=== PATIENT | male | born 1980 | race Caucasian/White ===

== ENCOUNTER 2017-06-29 16:33 | Emergency (ER) | payer SELFPAY ==
[~2017-06-29] VITALS: Ht 175.3 cm; Wt 77.1 kg
[2017-06-29 16:40] VITALS: BP 155/83
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
--- NOTE | 2017-06-29 17:25 | RAD ---
Exam: Right foot radiograph 06/29/2017 Indication: Trauma Comparison: Right foot radiograph 07/13/2015 Technique: 3 views of the right foot are provided. Findings: Dorsal plate and screw fixation of the first and second tarsometatarsal joints with a cannulated screw traversing the Lisfranc joint. No lucency is identified surrounding the hardware. There is no acute fracture or dislocation. Mild joint space narrowing at the talonavicular articulation. No soft tissue swelling. No osseous erosion or soft tissue gas. Bone mineralization is within normal limits. Impression: No acute fracture or dislocation.
[2017-06-29] MEDS ORDERED: IBUP-1060 PO (17:34)
[2017-06-29] MEDS ORDERED: predniSONE 20 MG TABLET PO ONE (17:45)
== END 2017-06-29 17:35 | disposition home or self-care (01) ==
LOC: ER 16:33
DX: S93.601A Unspecified sprain of right foot, initial encounter (principal); X58.XXXA Exposure to other specified factors, initial encounter; Y93.01 Activity, walking, marching and hiking; Y92.481 Parking lot as the place of occurrence of the external cause; Y99.8 Other external cause status
CPT/HCPCS: 73630; 99284

== ENCOUNTER 2020-11-06 14:12 | Emergency (ER) | payer OTHER ==
[~2020-11-06] VITALS: Ht 172.7 cm; Wt 77.0 kg
[2020-11-06 14:12] VITALS: BP 151/93
[~2020-11-06 14:12] MED LIST: IBUP-1060 PO
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
== END 2020-11-06 14:32 | disposition home or self-care (01) ==
LOC: ER 14:12
DX: F41.8 Other specified anxiety disorders (principal); F12.90 Cannabis use, unspecified, uncomplicated; Z98.890 Other specified postprocedural states
CPT/HCPCS: 99283

== ENCOUNTER 2021-06-16 03:41 | Emergency (ER) | payer OTHER ==
[~2021-06-16] VITALS: Ht 172.7 cm; Wt 77.3 kg
[2021-06-16 03:46] VITALS: BP 167/106
[2021-06-16] MEDS ORDERED: HYDR-2761 PO ×2 (04:56→05:25)
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
[2021-06-16] MEDS: KETOROLAC 30 MG/ML VIAL. IM ONE (05:10)
[2021-06-16] MEDS: LIDOCAINE (700MG/PATCH) PATCH. TD ONE (05:11)
[2021-06-16] MEDS ORDERED: IBUP-1060 PO (05:27)
[2021-06-16] MEDS ORDERED: CYCL10TA2 PO (05:27)
[2021-06-16] MEDS ORDERED: KETOROLAC 60 MG/2 ML VIAL. IM ONE (05:30)
--- NOTE | 2021-06-16 05:30 | RAD ---
XR LUMBAR SPINE 2-3V History: Reason: low back pain, SAID LITTLE TO LEFT WORSE, EXTREMELY PAINFUL TO BEND / Spl. Instructi ons: / History: Technique: 3 views lumbar spine. Comparison: None. Findings: Normal vertebral body height and alignment. No acute fracture. Degenerative disc changes most promine nt L5-S1 moderate. Impression: 1. No acute osseous abnormality. 2. Multilevel lumbar spondylosis most prominent L5-S1. Electronically signed by: Anuj Brito DO (06/16/2021 5:27 AM) CRISTIAN
== END 2021-06-16 05:40 | disposition home or self-care (01) ==
LOC: ER 03:41
DX: M54.59 Other low back pain (principal); M62.830 Muscle spasm of back
CPT/HCPCS: 72100; 96372; 99283; J1885

== ENCOUNTER 2022-01-25 18:37 | Emergency (ER) | payer OTHER ==
[~2022-01-25] VITALS: Ht 172.7 cm; Wt 75.0 kg
[~2022-01-25 18:37] MED LIST changes: +CYCL10TA19 PO; +HYDR-2761 PO
[2022-01-25] MEDS ORDERED: ONDANSETRON PF 4 MG/2 ML VIAL. IVP ONE (19:00)
[2022-01-25] MEDS ORDERED: MORPHINE SULFATE 4 MG/ML INJ. IVP ONE (19:00)
[2022-01-25] MEDS ORDERED: ONDANSETRON PF 4 MG/2 ML VIAL. ONE (19:03)
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
[2022-01-25] MEDS ORDERED: KETOROLAC 30 MG/ML VIAL. IVP ONE (20:15)
--- NOTE | 2022-01-25 21:05 | RAD ---
Exam: Right shoulder 3 views INDICATION: Dislocation, pain TECHNIQUE: Frontal view of the right shoulder with internal and external rotation and transscapular Y views Comparisons: None FINDINGS: Bone mineralization is normal. No acute or healed fractures. Soft tissues are unremarkable. There is widening at the AC joint. IMPRESSION: Widening at the AC joint. Correlate with point tenderness for joint disruption. No acute fractures se en. Electronically signed by: Ciera Rocha MD (01/25/2022 9:02 PM) BLESSING
--- NOTE | 2022-01-25 21:13 | RAD ---
Exam: CT of abdomen and pelvis without contrast INDICATION: Trauma, right flank pain TECHNIQUE: Sequential axial images through the abdomen and pelvis obtained without IV contrast. Sagit will and coronal reformatted images were reconstructed from the axial data and reviewed. Exposure: One or more of the following in the visualized dose reduction techniques were utilized for this examination: 1. Automated exposure control 2. Adjustment of the MA and/or KV according to patient size 3. Use of iterative of reconstructive technique Comparisons: None FINDINGS: Heart size is normal. No pericardial effusion. Strandy opacities the dependent portion lungs likely r epresenting atelectasis. No pleural effusion. Evaluation of solid organs limited secondary to noncontrast technique. Liver, spleen, pancreas, gallbladder and adrenals are unremarkable. No perinephric inflammation or hydronephrosis. No renal or ureteral calculi are identified. Bladder is partially distended and not well evaluated. Prostate is not enlarged. Moderate amount of stool is noted throughout the colon. Appendix is normal. Small bowel is unremarkab le. No free intra-abdominal air or fluid. No obstruction. Abdominal aorta has normal course and caliber. No enlarged intra-abdominal lymph nodes are identified. No suspicious osseous lesions or acute fractures. IMPRESSION: No sequela of acute traumatic injury identified within the abdomen or pelvis Electronically signed by: Ciera Rocha MD (01/25/2022 9:11 PM) [facility]
[2022-01-25 21:14] VITALS: BP 126/81
[2022-01-25] MEDS ORDERED: ACET325T9 PO (21:25)
[2022-01-25] MEDS ORDERED: IBUP-1007 PO (21:25)
== END 2022-01-25 21:37 | disposition home or self-care (01) ==
LOC: ER 18:37
DX: S43.101A Unspecified dislocation of right acromioclavicular joint, initial encounter (principal); R10.9 Unspecified abdominal pain; V89.9XXA Person injured in unspecified vehicle accident, initial encounter; Y93.89 Activity, other specified; Y92.89 Other specified places as the place of occurrence of the external cause; Y99.8 Other external cause status
CPT/HCPCS: 73030; 74176; 96374; 96375; 99284; A4565; J1885; J2270; J2405